=== PATIENT | male | born 1950 | race Caucasian/White ===

== ENCOUNTER → 2016-10-25 | Outpatient (CLI) | payer MEDICARE, BC | LOC: BHSO 10:49 | DX: F33.1 Major depressive disorder, recurrent, moderate (principal) | CPT/HCPCS: 90791-AI ==

== ENCOUNTER → 2016-11-08 | Outpatient (CLI) | payer MEDICARE, BC | LOC: BHSO 13:18 | DX: F33.41 Major depressive disorder, recurrent, in partial remission (principal) ==

== ENCOUNTER → 2016-12-06 | Outpatient (CLI) | payer MEDICARE, BC | LOC: BHSO 09:50 | DX: F41.1 Generalized anxiety disorder (principal) ==

== ENCOUNTER → 2017-02-07 | Outpatient (CLI) | payer MEDICARE, BC | LOC: BHSO 10:00 | DX: F41.1 Generalized anxiety disorder (principal) ==

== ENCOUNTER → 2017-05-09 | Outpatient (CLI) | payer MEDICARE, BC | LOC: BHSO 09:53 | DX: F41.1 Generalized anxiety disorder (principal) ==

== ENCOUNTER 2023-09-02 20:04 | Day surgery (SDC) | payer MEDICARE, BC ==
[2023-09-02] VITALS (7 sets, daily range): BP systolic 96–178; BP diastolic 52–90; PULSE 71–82; TEMP 97.9
[~2023-09-02] VITALS: Ht 185.4 cm; Wt 94.0 kg
--- NOTE | 2023-09-02 19:25 | NUR ---
PT ARRIVED TO ROOM 329 VIA EMS FROM [facility]. A&O X4. INT TO RIGHT AC PATENT. DR GLYNN NOTIFIED OF PT ARRIVAL & COMING TO SEE PT NOW.
[2023-09-02] MEDS ORDERED: Rocuronium 50 MG/5 ML Multi-Dose VIAL ONE (20:09)
[2023-09-02] MEDS ORDERED: fentaNYL 50 MCG/ML 2 ML VIAL ONE (20:09)
[2023-09-02] MEDS ORDERED: Lidocaine PF 2% (20 MG/ML) 5 ML VIAL ONE (20:10)
[2023-09-02] MEDS ORDERED: Ondansetron 4 MG/2 ML VIAL ONE (20:11)
[2023-09-02] MEDS ORDERED: dexAMETHasone 10 MG/ML VIAL ONE (20:11)
[2023-09-02] MEDS ORDERED: Ondansetron 4 MG/2 ML VIAL IV PRN ×2 (20:15→20:30)
[2023-09-02] MEDS ORDERED: LR 1,000 ML IV SCH ×2 (20:15→20:30)
[2023-09-02] MEDS ORDERED: Morphine 4 MG/ML VIAL IV PRN (20:15)
[2023-09-02] MEDS ORDERED: hydrALAZINE 20 MG/ML 1 ML VIAL IV PRN (20:15)
[2023-09-02] MEDS ORDERED: droPERidol 2.5 MG/ML 2 ML VIAL IV PRN (20:15)
[2023-09-02] MEDS ORDERED: fentaNYL 50 MCG/ML 2 ML VIAL IV PRN (20:15)
[2023-09-02] MEDS ORDERED: HYDROmorphone 2 MG/1 ML VIAL IV PRN (20:15)
[2023-09-02] MEDS ORDERED: HYDROmorphone 0.5 MG/0.5 ML SYRINGE IV PRN (20:30)
--- NOTE | 2023-09-02 20:40 | NUR ---
PT OFF FLOOR TO SURGERY
[2023-09-02] MEDS ORDERED: NS 10 ML IV ONE (20:56)
[2023-09-02] MEDS ORDERED: Ketorolac 30 MG/ML VIAL ONE (21:24)
[2023-09-02] MEDS ORDERED: Topical Skin Adhesive 1 EACH (1 ML) TOP ONE (21:25)
[2023-09-02] MEDS ORDERED: JARDIANCE10 PO (22:59)
[2023-09-02] MEDS ORDERED: ZOLOFT 50MG50 MG PO (22:59)
[2023-09-02] MEDS ORDERED: ASPIRIN E.C. 8181 MG PO (23:00)
--- NOTE | 2023-09-02 23:45 | NUR ---
PT BACK TO ROOM 329 FROM PACU AROUND 2225. A&O X4. VSS ON ROOM AIR. X3 ABD LAP SITES WITH SKIN GLUE. PT DENYING PAIN OR N/V, BUT STATES "I DO FEEL A LITTLE BLOATED", ENCOURAGED PT TO AMBULATE. PT TOLERATING ORAL INTAKE OK. IVF VIA GRAVITY TO RIGHT AC. PT ON POST OP VITALS. ORIENTED PT TO ROOM. DENYING FURTHER NEEDS & CALL LIGHT IN REACH.
[2023-09-03] VITALS (10 sets, daily range): BP systolic 118–188; BP diastolic 65–80; PULSE 71–98; TEMP 97.5–98.2
[2023-09-03] MEDS ORDERED: Ibuprofen 600 MG TAB PO SCH
--- NOTE | 2023-09-03 05:40 | NUR ---
PT REPORTS HAVING MINIMAL PAIN & THAT ITS WELL CONTROLLED WITH SCHEDULED MOTRIN. TOLERATING ORAL INTAKE. DENYING FURTHER NEEDS & CALL LIGHTS IN REACH.
--- NOTE | 2023-09-03 07:56 | NUR ---
Pt doing well this morning. Pt is up in his room, steady on his feet. Assisted with setting up his tray for breakfast. Pt currently sitting up in his chair to eat. Pt reports not having much pain. Placed call light in front of him and asked for him to use it when he is done.
[2023-09-03] MEDS ORDERED: MOTRIN 600600 MG/TAB PO (11:59)
[2023-09-03] MEDS ORDERED: NORCO 325 MG-51 TAB PO (11:59)
--- NOTE | 2023-09-03 12:50 | NUR ---
Reviewed discharge instructions with pt and his cousin. Discussed activity, shower and incision care as well as prescriptions and follow up appointment. INT removed from right AC and pt escorted out via wheelchair
--- NOTE | 2023-09-03 14:40 | NUR ---
Initial visit; Patient engaged Microstrategy Architect in a long discussion about the farm where he grew up and staying with his Aunt and Uncle and going to orthodox. He has been a Confucianist since he was a boy. He liked to talk about the people and the [place] and stated Microstrategy Architect touched his heart when she spoke of God and prayer and how they both grew up. Microstrategy Architect eventually offered prayer for Chaim and will keep him in her prayers.
--- NOTE | 2023-09-03 17:05 | NUR ---
horticultural worker met with patient to discuss discharge planning. Patient reports he lives by himself in [place]. best point of contact is his cousin, Abby Jules, P# [phone]. PCP is Drew Harley, pharmacy [facility] in [place]. No issues affording medications. DPOA-HC is Robby, brother, P# [phone]. No DME, patient reports to be independent with ADLS but he has at home care come in about once a month to assist with cleaning and dishes. Patient would like to return home at time of discharge. Discharge plan: Home
== END 2023-09-03 13:00 | disposition home or self-care (01) ==
LOC: SDCO 20:04 → SURG 20:04 → EDSTATUS 09-03 06:12 → SDCO 09-03 06:12
DX: K35.80 Unspecified acute appendicitis (principal); E11.9 Type 2 diabetes mellitus without complications; C44.91 Basal cell carcinoma of skin, unspecified; Z79.84 Long term (current) use of oral hypoglycemic drugs
CPT/HCPCS: OP; J0690; J1100; J1885; J2405; J2704; J3010; J7120